=== PATIENT | female | born 2000 | race Caucasian/White ===

== ENCOUNTER → 2022-08-19 | Outpatient (CLI) | payer OTHER ==
--- NOTE | 2022-08-19 13:31 | US ---
EXAMINATION TYPE: Ultrasound OB <= 14 weeks transvaginal DATE OF EXAM: 08/19/2022 1:09 PM COMPARISON: NONE CLINICAL HISTORY: 22-year-old female Z36.89 ENCOUNTER FOR OTHER SPECIFIED SCR. Dates. No p ain or bleeding. EXAM PERFORMED: Transvaginal (TV) and Transabdominal (TA) FINDINGS: EXAM MEASUREMENTS: GESTATIONAL AGE / DATING Physician Established: Not yet established Dates by LMP: (12 weeks/2 days) EDC: 03/01/2023 Dates by First Scan: No previous this is first scan Dates by Current Scan for: ( 7 weeks/5 days) EDC: 04/02/2023 MATERNAL ANATOMY Uterus: 9.2 x 6.4 x 6.4 cm Right Ovary: 2.6 x 1.3 x 1.3 cm Left Ovary: 2.5 x 1.2 x 1.3 cm Post CDS / Adnexa: no Presence of free fluid: no Presence of corpus luteal cyst: right ovary- 1.5 x 1.3 x 1.1 cm Presence of subchorionic bleed: no GESTATION / SURVEY CRL: 0.5 cm (6 weeks/2 days) MSD: 3.5 cm (9 weeks/0 days) Yolk Sac (normal less than 6mm): Not visualized Heart Rate: Negative heart tones IUP: Demise Date of LMP: 05/25/2022, G1 Beta HcG (if available): Not available at this time Chief Procurement Officer notes: GS and CRL visualized. No YS seen at time of scan. GS appears low in JORDAN. No fe billie heart tones visualized, color doppler performed. IMPRESSION: Findings concerning for demise. The gestational sac (9 weeks 0 days) is relatively larger than the pole (6 weeks 2 days). Both are discordant an smaller with age by LMP. The pole measu res 5 mm and shows no cardiac activity. The gestational sac is also low-lying in the uterus. Recommen d serial beta hCG to confirm demise.
== END | disposition home or self-care (01) ==
LOC: RADUSWWP 12:16
PROVIDERS: ATTEND Obstetrics & Gynecology
DX: Z36.89 Encounter for other specified antenatal screening (principal); O20.0 Threatened abortion; Z3A.09 9 weeks gestation of pregnancy
CPT/HCPCS: 76801; 76817; 84702

== ENCOUNTER 2022-08-26 13:07 | Emergency (ER) | payer OTHER ==
[2022-08-26 13:14] VITALS: TEMP 98.5
[2022-08-26] MEDS ORDERED: SODIUM CHLORIDE 0.9% 1,000 ML IV ONE (13:19)
--- NOTE | 2022-08-26 13:32 | ED ---
General Adult HPI - General Chief complaint: Vaginal Bleeding Stated complaint: miscarriage Time Seen by Provider: 08/26/22 13:17 Source: patient, family, RN notes reviewed, old records reviewed Mode of arrival: ambulatory Limitations: no limitations - History of Present Illness Initial comments: This is a 22-year-old female that presents to the emergency room with her mom complaining of a miscarriage on Monday. Patient was diagnosed with demis e by ultrasound on August [address] Faust. She passed a large amount of tissue at home on Monday which mom retrieved and brought in to the ER today in a small box. Mom states they contacted the OB office and we offered to bring speciment in to send to lab and they opted not to. They took it to the home and the home recommended that she come to the emergency room for evaluation. Patient denies any pain or discomfort. No fevers. No further vaginal bleeding or cramping. Mom states that patient has an abnormal uterus and wanted her reevaluated. -: days(s) (7) Severity scale (1-10): 0 Associated Symptoms: denies other symptoms - Related Data Allergies Allergy/AdvReac Type Severity Reaction Status Date / Time No Known Allergies Allergy Verified 08/26/22 13:14 Review of Systems ROS Statement: Those systems with pertinent positive or pertinent negative responses have been documented in the HPI. ROS Other: All systems not noted in ROS Statement are negative. Past Medical History Past Medical History: No Reported History History of Any Multi-Drug Resistant Organisms: None Reported Past Surgical History: No Surgical Hx Reported Past Psychological History: No Psychological Hx Reported Smoking Status: Never smoker Past Alcohol Use History: None Reported Past Drug Use History: Marijuana General Exam Limitations: no limitations General appearance: alert, in no apparent distress Head exam: Present: atraumatic Eye exam: Present: normal appearance. Absent: scleral icterus, conjunctival injection, periorbital swelling Respiratory exam: Absent: respiratory distress, accessory muscle use Cardiovascular Exam: Present: regular rate GI/Abdominal exam: Present: soft. Absent: distended, tenderness, rigid Extremities exam: Present: normal capillary refill. Absent: pedal edema Neurological exam: Present: alert, oriented X3 Psychiatric exam: Present: normal affect, normal mood Skin exam: Present: warm, dry, normal color. Absent: cyanosis, diaphoretic, pallor Course Vital Signs 08/26/22 08/26/22 13:11 15:14 Temperature 98.5 F Pulse Rate 94 91 Respiratory 20 18 Rate Blood Pressure 146/90 141/76 O2 Sat by Pulse 99 98 Oximetry Medical Decision Making - Medical Decision Making Hemoglobin and hematocrit are stable. Beta quantitative is 89.8 down from 2854 on August 19. Pelvic ultrasound today shows a slightly thickened endometrium measuring up to 2.5 cm without gestational sac or fluid identified. No significant internal color flow. This represents sequelae of a recent with retained products of conception not excluded. She'll be referred to follow up with Dr. Faust next week. Return to the emergency room with any new or concerning symptoms including fevers or increased pain. A repeat beta hCG drawn in 48 hours. Blood type O+, no rhogam indicated. Vital signs are stable. Patient remains pain free at discharge. Case discussed with Dr. Mcgrath Was pt. sent in by a medical professional or institution? @ -no Did you speak to anyone other than the patient for history? @ -mom Did you review nursing and triage notes? @ -yes i agree Were old charts reviewed? @ -yes previous u/s and labs Differential Diagnosis? @ -Ectopic , incomplete , missed EKG interpreted by me (3pts min.)? @ -[none] X-rays interpreted by me (1pt min.)? @ -[none] CT interpreted by me (1pt min.)? @ -[none] U/S interpreted by me (1pt. min.)? @ -no What testing was considered but not performed? (CT, X-rays, U/S, labs)? Why? @ none What meds were considered but not given? Why? @ -RhoGAM was considered however patient's blood type is O+, not indicated Did you discuss the management of the patient with other professionals? @ -no Did you reconcile home meds? @ -no Was smoking cessation discussed for >3mins.? @ -[none] Was critical care preformed (if so, how long)? @ -no Were there social determinants of health that impacted care today? How? (Homelessness, low income, unemployed, alcoholism, drug addiction, transportation, low edu. Level, literacy, decrease access to med. care, senior living, rehab)? @ -no Was there de-escalation of care discussed even if they declined? (Discuss DNR or withdrawal of care, Hospice)? @ -no What co-morbidities impacted this encounter? (DM, HTN, Smoking, COPD, CAD, Cancer, CVA, Hep., AIDS, mental health diagnosis, sleep apnea, morbid obesity)? @ -none Was patient admitted / discharged? @ -discharged Undiagnosed new problem with uncertain prognosis? @ -[none] Drug Therapy requiring intensive monitoring for toxicity (Heparin, Nitro, Insulin, Cardizem)? @ -[none] Were any procedures done? @ -none Diagnosis/symptom? @ -Miscarriage Acute, or Chronic, or Acute on Chronic? @ -acute Uncomplicated (without systemic symptoms) or Complicated (systemic symptoms)? @ -Uncomplicated Side effects of treatment? @ -[none] Exacerbation, Progression, or Severe Exacerbation] @ -[no] Poses a threat to life or bodily function? @ -[no] - Lab Data Result diagrams: 08/26/22 13:41 08/26/22 13:41 Lab Results 08/26/22 08/26/22 08/26/22 Range/Units 13:41 13:41 14:54 WBC 6.4 (3.8-10.6) k/uL RBC 4.30 (3.80-5.40) m/uL Hgb 13.1 (11.4-16.0) gm/dL Hct 37.1 (34.0-46.0) % MCV 86.4 (80.0-100.0) fL MCH 30.4 (25.0-35.0) pg MCHC 35.2 (31.0-37.0) g/dL RDW 13.2 (11.5-15.5) % Plt Count 347 (150-450) k/uL MPV 7.3 Neutrophils % 72 % Lymphocytes % 20 % Monocytes % 4 % Eosinophils % 2 % Basophils % 0 % Neutrophils # 4.6 (1.3-7.7) k/uL Lymphocytes # 1.3 (1.0-4.8) k/uL Monocytes # 0.3 (0-1.0) k/uL Eosinophils # 0.1 (0-0.7) k/uL Basophils # 0.0 (0-0.2) k/uL Sodium 141 (137-145) mmol/L Potassium 4.4 (3.5-5.1) mmol/L Chloride 107 (98-107) mmol/L Carbon Dioxide 27 (22-30) mmol/L Anion Gap 7 mmol/L BUN 5 L (7-17) mg/dL Creatinine 0.72 (0.52-1.04) mg/dL Est GFR (CKD-EPI)AfAm >90 (>60 ml/min/1.73 sqM) Est GFR (CKD-EPI)NonAf >90 (>60 ml/min/1.73 sqM) Glucose 98 (74-99) mg/dL Calcium 8.9 (8.4-10.2) mg/dL HCG, Quant 89.8 mIU/mL Blood Type O Positive Blood Type Recheck No Previous Record Bld Type Recheck Status [facility] ONLY Disposition Clinical Impression: Miscarriage Disposition: HOME SELF-CARE Condition: Good Instructions (If sedation given, give patient instructions): Miscarriage (ED) Additional Instructions: Follow-up with your VEGETABLE FARMWORKER next week. Return to the emergency room with any new or concerning symptoms including increased pain, shortness of breath, dizziness or fevers. Is patient prescribed a controlled substance at d/c from ED?: No Referrals: None,Stated [Primary Care Provider] - 1-2 days Time of Disposition: 15:42
[2022-08-26 13:59] LABS: Basophils % (A) 0 %; Eosinophils # (A) 0.1 k/uL (0-0.7); Eosinophils % (A) 2 %; HCT 37.1 % (34.0-46.0); HGB 13.1 gm/dL (11.4-16.0); Lymphocytes # (A) 1.3 k/uL (1.0-4.8); Lymphocytes % (A) 20 %; MCH 30.4 pg (25.0-35.0); MCHC 35.2 g/dL (31.0-37.0); MCV 86.4 fL (80.0-100.0); Mean Platelet Volume 7.3; Monocytes # (A) 0.3 k/uL (0-1.0); Monocytes % (A) 4 %; Neutrophils # (A) 4.6 k/uL (1.3-7.7); Neutrophils % (A) 72 %; Platelet Count 347 k/uL (150-450); RDW 13.2 % (11.5-15.5); WBC 6.4 k/uL (3.8-10.6)
[2022-08-26 14:07] LABS: African American GFR (CKD) >90 (>60 ml/min/1.73 sqM); Anion Gap 7 mmol/L; Blood Urea Nitrogen 5 mg/dL (7-17); Calcium 8.9 mg/dL (8.4-10.2); Carbon Dioxide 27 mmol/L (22-30); Chloride 107 mmol/L (98-107); Glucose 98 mg/dL (74-99); Non-African American GFR(CKD) >90 (>60 ml/min/1.73 sqM); Potassium 4.4 mmol/L (3.5-5.1); Sodium 141 mmol/L (137-145)
[2022-08-26 14:21] LABS: HCG,Quantitative Serum 89.8 mIU/mL
--- NOTE | 2022-08-26 14:33 | US ---
EXAMINATION TYPE: US pelvic complete DATE OF EXAM: 08/26/2022 COMPARISON: OB ultrasound 08/19/2022 CLINICAL HISTORY: retained products. Spontaneous AB 4 days ago, bleeding has lessened, no pain, no fe selene TECHNIQUE: TA. Transabdominal sonographic images of the pelvis were acquired. Refused TV Date of LMP: unknown EXAM MEASUREMENTS: Uterus: 8.8 x 6.9 x 4.7 cm Endometrial Stripe: 2.5cm Right Ovary: 2.5 x 1.9 x 1.8 cm Left Ovary: 2.2 x 1.5 x 1.8 cm 1. Uterus: Anteverted wnl 2. Endometrium: slightly thickened versus normal 4 day post spontaneous AB. No gestational sac or fl uid identified. No significant internal color flow. 3. Right Ovary: wnl 4. Left Ovary: wnl 5. Bilateral Adnexa: wnl 6. Posterior cul-de-sac: wnl IMPRESSION: Slightly thickened endometrium measuring up to 2.5 cm without gestational sac or fluid identified. No significant internal color flow. This may represent sequelae of recent with retained produc ts of conception not excluded. Correlation with serial beta hCG and short-term follow-up exam is cindy mmended.
[2022-08-26 15:45] VITALS: BP 141/76; PULSE 91; RESP 18
== END 2022-08-26 15:47 | disposition home or self-care (01) ==
LOC: EC 13:07
DX: O03.9 Complete or unspecified spontaneous abortion without complication (principal); F12.90 Cannabis use, unspecified, uncomplicated
CPT/HCPCS: 36415; 76856; 80048; 84702; 85025; 86900; 86901; 96360; 99284

== ENCOUNTER 2023-08-21 15:15 | Outpatient (CLI) | payer OTHER ==
[2023-08-21 16:20] LABS: ALT 11 U/L (4-34); AST 20 U/L (14-36); African American GFR (CKD) >90 (>60 ml/min/1.73 sqM); Blood Urea Nitrogen 5 mg/dL (7-17); LDH 208 U/L (120-246); Non-African American GFR(CKD) >90 (>60 ml/min/1.73 sqM); Uric Acid 3.4 mg/dL (3.7-7.4)
[2023-08-21 16:27] LABS: Basophils % (A) 0 %; Eosinophils % (A) 0 %; HCT 34.6 % (34.0-46.0); HGB 12.1 gm/dL (11.4-16.0); Lymphocytes # (A) 1.4 k/uL (1.0-4.8); Lymphocytes % (A) 15 %; MCH 29.5 pg (25.0-35.0); MCV 84.1 fL (80.0-100.0); Mean Platelet Volume 7.8; Monocytes # (A) 0.4 k/uL (0-1.0); Monocytes % (A) 4 %; Neutrophils % (A) 78 %; Platelet Count 310 k/uL (150-450); Poikilocytosis Slight; RBC 4.12 m/uL (3.80-5.40); RDW 13.5 % (11.5-15.5); WBC 8.9 k/uL (3.8-10.6)
[2023-08-21 16:48] VITALS: BP 136/85; PULSE 112; RESP 16; TEMP 98.1
[2023-08-21 17:08] LABS: Creatinine,Urine Random 110.9 mg/dL; Protein/Creatinine Ratio,Urine 0.099
== END 2023-08-21 17:20 | disposition home or self-care (01) ==
LOC: FBPOP 15:15
PROVIDERS: ATTEND Obstetrics & Gynecology
DX: O13.3 Gestational [pregnancy-induced] hypertension without significant proteinuria, third trimester (principal); Z3A.34 34 weeks gestation of pregnancy; Z79.82 Long term (current) use of aspirin
CPT/HCPCS: 59025; 82565; 82570; 83615; 84156; 84450; 84460; 84520; 84550; 85025

== ENCOUNTER 2023-09-14 12:14 | Outpatient (CLI) | payer OTHER ==
[2023-09-14 13:09] LABS: Basophils % (A) 0 %; Eosinophils % (A) 0 %; HCT 35.9 % (34.0-46.0); HGB 11.7 gm/dL (11.4-16.0); Lymphocytes # (A) 1.1 k/uL (1.0-4.8); Lymphocytes % (A) 12 %; MCHC 32.6 g/dL (31.0-37.0); Mean Platelet Volume 7.7; Monocytes # (A) 0.3 k/uL (0-1.0); Monocytes % (A) 4 %; Neutrophils % (A) 82 %; Platelet Count 326 k/uL (150-450); RBC 4.17 m/uL (3.80-5.40); RDW 14.3 % (11.5-15.5); WBC 8.6 k/uL (3.8-10.6)
[2023-09-14 13:23] LABS: Creatinine,Urine Random 139.3 mg/dL; Protein/Creatinine Ratio,Urine 0.144
[2023-09-14 13:25] LABS: ALT 10 U/L (4-34); AST 25 U/L (14-36); African American GFR (CKD) >90 (>60 ml/min/1.73 sqM); Blood Urea Nitrogen 6 mg/dL (7-17); LDH 269 U/L (120-246); Non-African American GFR(CKD) >90 (>60 ml/min/1.73 sqM); Uric Acid 3.8 mg/dL (3.7-7.4)
[2023-09-14 14:05] VITALS: BP 149/81; PULSE 110; RESP 18; TEMP 98.8
[2023-09-14 16:55] LABS: Appearance,Urine Cloudy (Clear); Bacteria,Urine Few /hpf; Bilirubin,Urine Negative (Negative); Blood,Urine Negative (Negative); Color,Urine Yellow; Glucose,Urine (UA) Negative (Negative); Ketones,Urine Negative (Negative); Leukocyte Esterase,Urine Large (Negative); Mucus,Urine Few /hpf; Nitrite,Urine Negative (Negative); PH, Urine 7.5 (5.0-8.0); Protein,Urine 1+ (Negative); RBC,Urine 8 /hpf (0-5); Specific Gravity,Urine 1.015 (1.001-1.035); Squamous Epithelial Cell,Urine 42 /hpf (0-4); Urobilinogen,Urine <2.0 mg/dL (<2.0); WBC,Urine 24 /hpf (0-5)
== END 2023-09-14 13:51 | disposition home or self-care (01) ==
LOC: FBPOP 12:14
PROVIDERS: ATTEND Obstetrics & Gynecology
DX: O10.013 Pre-existing essential hypertension complicating pregnancy, third trimester (principal); Z3A.37 37 weeks gestation of pregnancy
CPT/HCPCS: 59025; 81001; 82565; 82570; 83615; 84156; 84450; 84460; 84520; 84550; 85025

== ENCOUNTER 2023-09-18 15:52 | Inpatient (IN) | payer OTHER ==
[2023-09-18] MEDS: LACTATED RINGERS 1,000 ML IV SCH (16:40)
[2023-09-18] MEDS ORDERED: TERBUTALINE 1 MG/ML VIAL SQ PRN (17:04)
[2023-09-18] MEDS ORDERED: OXYTOCIN 10 UNIT/ML 1 ML VIAL IM PRN (17:04)
[2023-09-18] MEDS ORDERED: METHYLERGONOVINE 0.2 MG/ML 1 ML AMP IM PRN (17:04)
[2023-09-18] MEDS ORDERED: CARBOPROST TROMETHAMINE 250 MCG/ML 1 ML AMP IM PRN (17:04)
[2023-09-18] MEDS ORDERED: miSOPROStoL 200 MCG TAB PO PRN (17:04)
[2023-09-18] MEDS ORDERED: TRANEXAMIC 1,000 MG/100ML-NACL 1,000 MG in EMPTY BAG 1 BAG IV PRN (17:04)
--- NOTE | 2023-09-18 17:04 | P.HPOB ---
History of Present Illness H&P Date: 09/18/23 Chief Complaint: Medical induction of labor Ms. Saenz is a 23 year old at 38 weeks and 2 days with EDC of 09/30/2023 by LMP consistent with 12 week US who presents for medical induction of labor for chronic hypertension (on Procardia 30mg BID) and severe IUGR with estimated weight in the 1st percentile at last growth ultrasound 3 weeks ago. surveillance with twice weekly non-stress tests and weekly biophysical profiles with umbilical artery dopplers have all been reassuring and within normal limits. Most recent PIH labs were within normal limits with a P:C ratio of 0.1 on 09/14/2023 after the patient had a severe-range blood pressure in the office. work-up: blood type O positive, antibody negative, rubella immune, VDRL non-reactive, HBsAg negative, HIV negative, gonorrhea negative, chlamydia negative, 1 hour GTT within normal limits, GBS negative. Past Medical History Past Medical History: No Reported History History of Any Multi-Drug Resistant Organisms: None Reported Past Surgical History: No Surgical Hx Reported Past Anesthesia/Blood Transfusion Reactions: No Reported Reaction Past Psychological History: No Psychological Hx Reported Smoking Status: Never smoker Past Alcohol Use History: None Reported Past Drug Use History: Marijuana Medications and Allergies Home Medications Medication Instructions Recorded Confirmed Type Aspirin 81 mg PO DAILY 08/21/23 09/18/23 History NIFEdipine XL [Procardia Xl] 30 mg PO BID 08/21/23 09/18/23 History Vit No.179/Iron/Folic 1 each PO DAILY 09/14/23 09/18/23 History [ Tablet] Allergies Allergy/AdvReac Type Severity Reaction Status Date / Time No Known Allergies Allergy Verified 08/21/23 15:38 Exam Vital Signs Temp Pulse Resp BP Pulse Ox 09/18/23 16:09 98.1 F 99 16 150/104 99 Intake and Output 09/18/23 09/18/23 09/18/23 06:59 14:59 22:59 Other: Weight 75.296 kg Focused physical exam is performed. This is a healthy-appearing in no apparent distress. Initial blood pressures are elevated at 140s-150s/80s-90s. Breathing is non-labored. Abdomen is gravid, non-tender. Cervix is closed, long, and high. Cooks catheter is inserted through the cervix with 60cc in each balloon. Extremities are non-tender and non-edematous. heart tones are reactive and reassuring on NST. Assessment and Plan Assessment: 23 year old at 38 weeks and 2 days presenting for medical induction of labor for cHTN on antihypertensives and severe IUGR in the 1%ile for estimated weight Plan: Admit, clear liquid diet this evening followed by NPO at midnight, low-dose oxytocin. Cooks catheter to be removed at 0500 followed by pitocin per protocol. Plan for AROM tomorrow morning. IV nubain prn overnight for pain. Continuous EFM and tocometer. Close monitoring of patient. Anticipate vaginal delivery. Time with Patient: Less than 30
[2023-09-18] MEDS: OXYTOCIN 30 UNITS/500 ML NS 30 UNIT in SALINE 1 500ML.BAG IV SCH (17:13)
[2023-09-18 17:37] LABS: Basophils % (A) 0 %; Eosinophils % (A) 0 %; HCT 34.8 % (34.0-46.0); HGB 11.7 gm/dL (11.4-16.0); Lymphocytes # (A) 1.6 k/uL (1.0-4.8); Lymphocytes % (A) 16 %; MCH 28.7 pg (25.0-35.0); MCHC 33.6 g/dL (31.0-37.0); MCV 85.3 fL (80.0-100.0); Mean Platelet Volume 8.2; Monocytes # (A) 0.4 k/uL (0-1.0); Monocytes % (A) 4 %; Neutrophils # (A) 7.9 k/uL (1.3-7.7); Neutrophils % (A) 78 %; Platelet Count 373 k/uL (150-450); RBC 4.08 m/uL (3.80-5.40); RDW 14.5 % (11.5-15.5); WBC 10.1 k/uL (3.8-10.6)
[2023-09-18 18:33] LABS: ALT 11 U/L (4-34); AST 22 U/L (14-36); African American GFR (CKD) >90 (>60 ml/min/1.73 sqM); Albumin 3.7 g/dL (3.5-5.0); Alkaline Phosphatase 109 U/L (38-126); Anion Gap 6 mmol/L; Blood Urea Nitrogen 6 mg/dL (7-17); Calcium 8.8 mg/dL (8.4-10.2); Carbon Dioxide 21 mmol/L (22-30); Chloride 110 mmol/L (98-107); Glucose 82 mg/dL (74-99); Non-African American GFR(CKD) >90 (>60 ml/min/1.73 sqM); Potassium 3.5 mmol/L (3.5-5.1); Sodium 137 mmol/L (137-145); Total Bilirubin 0.4 mg/dL (0.2-1.3); Total Protein 6.9 g/dL (6.3-8.2)
[2023-09-18 19:29] LABS: Amphetamine Screen,Urine Not Detected (NotDetected); Barbiturate Screen,Urine Not Detected (NotDetected); Benzodiazepines Screen,Urine Not Detected (NotDetected); Cocaine Screen,Urine Not Detected (NotDetected); Methadone Screen, Urine Not Detected (NotDetected); Opiate Screen,Urine Not Detected (NotDetected); Oxycodone Screen, Urine Not Detected (NotDetected); Phencyclidine Screen,Urine Not Detected (NotDetected); Tricyclic Antidepressant,Urine Not Detected (NotDetected); Urn Cannabinoid Scrn Not Detected (NotDetected)
[2023-09-18] MEDS: NIFEdipine XL 30 MG TAB.ER.24 PO SCH (19:43)
[2023-09-18 19:51] LABS: Creatinine,Urine Random 125.3 mg/dL; Protein/Creatinine Ratio,Urine 0.184
[2023-09-18] MEDS: NALBUPHINE 10 MG/ML (10 ML MDV) IV PRN (20:39)
[2023-09-19] MEDS ORDERED: SODIUM CHLORIDE 0.9% 250 ML BAG ONE (05:58)
[2023-09-19] MEDS ORDERED: ROPIVACAINE 5 MG/ML 30 ML VIAL ONE (05:58)
[2023-09-19] MEDS ORDERED: fentaNYL (PF) 50 MCG/ML 5 ML AMP ONE (05:58)
[2023-09-19] MEDS: LIDOCAINE 0.5% (PF) 5 MG/ML (50 ML SDV) SQ PRN (08:41)
[2023-09-19] MEDS ORDERED: HYDROCORTISONE 2.5% RECTAL CREAM 30 GM TUBE RECTAL PRN (09:21)
[2023-09-19] MEDS ORDERED: LANOLIN CREAM 5 GM TUBE TOPICAL PRN (09:21)
[2023-09-19] MEDS ORDERED: ZOLPIDEM 5 MG TAB PO PRN (09:21)
[2023-09-19] MEDS ORDERED: diphenhydrAMINE 25 MG CAP PO PRN (09:21)
[2023-09-19] MEDS ORDERED: SIMETHICONE 80 MG CHEWABLE PO PRN (09:21)
[2023-09-19] MEDS ORDERED: diphenhydrAMINE 50 MG/ML 1 ML VIAL IVP PRN ×2 (09:21)
[2023-09-19] MEDS ORDERED: diphenhydrAMINE 50 MG CAP PO PRN (09:21)
[2023-09-19] MEDS: BENZOCAINE/MENTHOL SPRAY 1 GM/SPRAY AEROSOL TOPICAL PRN (09:26)
--- NOTE | 2023-09-19 09:27 | P.PROBDLV ---
Vaginal Delivery Note - . Vaginal Delivery Note: DATE OF SERVICE: 09/19/2023 PROCEDURE: Normal Vaginal Delivery ATTENDING: Dr. Laurel Jones MD ESTIMATED BLOOD LOSS: 200 mL FINDINGS: VFI, Apgars 9/9. Weight 4 poudns and 9 ounces (2065 grams) PROCEDURE: Ms. Saenz is a 23 year old at 38 weeks and 3 days presenting to labor and delivery for medical induction of labor. The has been complicated by chronic hypertension on antihypertensives and severe IUGR. For further details, please review the admitting H&P. A cooks catheter was placed overnight for cervical ripening with low-dose oxytocin. After removal, pitocin was titrated per protocol. The patient received epidural anesthesia per her request. SROM occurred at 810 revealing clear amniotic fluid. The patient was completely dilated at 812. She pushed effectively with Category I heart tones throughout the first and second stage of labor. A viable female infant was delivered at 831. The was placed on the maternal abdomen and bulb suctioned. The was noted to be spontaneously crying. Cord was clamped and cut after a 3 minute delay per the patient's request. The was handed off to the pediatric team. Placenta was delivered whole with gentle cord traction at 837. Oxytocin was started to facilitate uterine tone. Uterine fundus was found to be firm and below the umbilicus upon fundal massage. Thorough examination of the cervix, vagina, periurethral area, and perineum revealed a small second degree laceration that was repaired in the usual fashion with 2-0 Vicryl. The patient is stable and allowed to begin the bonding process.
[2023-09-19] MEDS: ROPIVACAINE 225 MG, fentaNYL (PF). 450 MCG in SODIUM CHLORIDE 0.9% 171 ML EPIDURAL ONE (12:26)
[2023-09-19] MEDS: IBUPROFEN 600 MG TAB PO PRN (13:14)
[2023-09-19] MEDS: SENNOSIDES-DOCUSATE SODIUM 1 EACH TAB PO SCH (20:31)
[2023-09-19] MEDS: ACETAMINOPHEN TAB 325 MG TAB PO PRN (22:40)
[2023-09-20 06:28] LABS: Basophils % (A) 0 %; Eosinophils # (A) 0.1 k/uL (0-0.7); Eosinophils % (A) 1 %; HCT 33.2 % (34.0-46.0); Lymphocytes % (A) 14 %; MCH 28.7 pg (25.0-35.0); MCHC 33.3 g/dL (31.0-37.0); MCV 86.4 fL (80.0-100.0); Mean Platelet Volume 7.4; Monocytes # (A) 0.5 k/uL (0-1.0); Monocytes % (A) 4 %; Neutrophils # (A) 11.1 k/uL (1.3-7.7); Neutrophils % (A) 80 %; Platelet Count 396 k/uL (150-450); RBC 3.84 m/uL (3.80-5.40); WBC 13.8 k/uL (3.8-10.6)
--- NOTE | 2023-09-20 08:42 | P.PNOBGVD ---
Subjective - Subjective Principal diagnosis: s/p normal vaginal delivery Interval history: The patient is doing well this morning and had no acute events overnight. She has no complaints this morning. She reports minimal lochia, passing flatus, voiding without difficulty, ambulating, and eating/drinking without nausea or vomiting. She is her without difficulty. She denies chest pain, shortness of breathing, fevers, or chills overnight. She denies pain or swelling in the legs. Patient reports: Reports appetite normal, Reports voiding normally, Reports pain well controlled, Reports ambulating normally [place]: doing well, nursing well Objective - Latest Vital Signs Latest vital signs: Vital Signs Temp Pulse Resp BP Pulse Ox 09/20/23 00:00 98.7 F 96 16 142/88 09/19/23 16:00 98.2 F 85 16 136/79 98 09/19/23 12:00 98.6 F 98 16 136/78 98 09/19/23 10:48 98.7 F 98 16 134/77 09/19/23 10:33 100 16 138/79 09/19/23 10:18 99 16 134/70 09/19/23 10:03 105 H 16 126/72 09/19/23 09:48 120 H 18 121/64 09/19/23 09:33 118 H 18 140/69 09/19/23 09:18 110 H 18 146/70 09/19/23 09:03 123 H 18 151/75 09/19/23 08:48 99.6 F 129 H 18 160/86 98 Intake and Output 09/19/23 09/20/23 09/20/23 22:59 06:59 14:59 Intake Total 300 Balance 300 Intake: Oral 300 Other: # Voids 2 1 # Bowel Movements 1 - Exam Extremities: Present: normal Abdomen: Present: normal appearance, soft Uterus: Present: normal, firm - Labs Labs: Abnormal Lab Results - Last 24 Hours (Table) 09/20/23 Range/Units 06:10 WBC 13.8 H (3.8-10.6) k/uL Hgb 11.0 L (11.4-16.0) gm/dL Hct 33.2 L (34.0-46.0) % Neutrophils # 11.1 H (1.3-7.7) k/uL Assessment and Plan Assessment: 23 year old now PPD#1 s/p normal vaginal delivery after induction of labor for cHTN and severe IUGR Plan: 1. . Patient meeting all milestones appropriately. 2. cHTN. BPs normotensive to mild range (all <150/90) on Procardia XL 30mg BID. Continue this dose. 3. Viable female at bedside, doing well. Dispo: Anticipate discharge home tomorrow.
--- NOTE | 2023-09-21 08:42 | P.DS ---
Providers Date of admission: 09/18/23 15:52 Expected date of discharge: 09/21/23 Attending physician: Laurel Jones MD Primary care physician: Rosendo Hiciro [place] Course: Ms. Saenz is a 23 year old now PPD#2 s/p normal vaginal delivery after medical induction of labor for chronic hypertension on antihypertensives and severe IUGR. The patient is doing well this morning and had no acute events overnight. She has no complaints this morning. She reports minimal lochia, passing flatus, voiding without difficulty, ambulating, and eating/drinking without nausea or vomiting. Infant doing well at bedside. She denies chest pain, shortness of breathing, fevers, or chills overnight. She denies pain or swelling in the legs. She denies headache, visual disturbances, or right upper quadrant pain. restrictions are reviewed with the patient including pelvic rest for 6 weeks. The patient is encouraged to call the office if she experiences any heavy bleeding, foul-smelling discharge, breast complaints, or any if she has any other concerns. She will follow up in the office in 1 week for blood pressure check. All questions are answered. Assessment: 23 year old now PPD#2 s/p normal vaginal delivery Patient Condition at Discharge: Good Plan - Discharge Summary New Discharge Prescriptions: New Ibuprofen [Motrin] 600 mg PO Q6HR PRN #30 tab PRN Reason: Mild Pain (Scale 1 To 3) Acetaminophen Tab [Tylenol] 650 mg PO Q6H PRN #30 tab PRN Reason: Mild Pain (Scale 1 To 3) No Action NIFEdipine XL [Procardia Xl] 30 mg PO BID Aspirin 81 mg PO DAILY Vit No.179/Iron/Folic [ Tablet] 1 each PO DAILY Discharge Medication List Aspirin 81 mg PO DAILY 08/21/23 [History] NIFEdipine XL [Procardia Xl] 30 mg PO BID 08/21/23 [History] Vit No.179/Iron/Folic [ Tablet] 1 each PO DAILY 09/14/23 [History] Acetaminophen Tab [Tylenol] 650 mg PO Q6H PRN #30 tab 09/21/23 [Rx] Ibuprofen [Motrin] 600 mg PO Q6HR PRN #30 tab 09/21/23 [Rx] Follow up Appointment(s)/Referral(s): Luarel Jones MD [STAFF PHYSICIAN] - 1 Week Activity/Diet/Wound Care/Special Instructions: Instructions 1. Do not begin any exercise program for 3 weeks. 2. Do not resume sexual relations for 6 weeks or longer if uncomfortable. 3. You may take tub baths or showers at any time. 4. You may use tampons if desired after 6 weeks. 5. Keep any areas repaired with stitches clean and dry. 6. If you are not nursing, wear a good fitting, supportive bra during the day and limit fluid intake for at least 1 week to prevent breast engorgement. 7. Call the office, , within the next week to make appointment for your 6 week checkup if it has not already been made. 8. Report any of the following occurrences to the doctor promptly: a. Heavy, excessive bleeding b. Chills, fever c. Burning or frequency of urination d. Pain or redness and breasts if nursing e. Increasing pain or swelling of vulva (stitches). Discharge Disposition: HOME SELF-CARE
[2023-09-21 08:51] VITALS: BP 135/77; PULSE 107; RESP 18; TEMP 98.6
== END 2023-09-21 10:35 | disposition home or self-care (01) | DRG 560 ==
LOC: 4FBP 15:52
PROVIDERS: ADMIT Obstetrics & Gynecology; ATTEND Obstetrics & Gynecology
PROC: 0KQM0ZZ Repair Perineum Muscle, Open Approach (ICD-10-PCS; principal; 2023-09-19)
PROC: 0U7C7ZZ Dilation of Cervix, Via Natural or Artificial Opening (ICD-10-PCS; principal; 2023-09-19)
PROC: 4A1HXCZ Monitoring of Products of Conception, Cardiac Rate, External Approach (ICD-10-PCS; principal; 2023-09-19)
PROC: 3E033VJ Introduction of Other Hormone into Peripheral Vein, Percutaneous Approach (ICD-10-PCS; principal; 2023-09-19)
PROC: 10E0XZZ Delivery of Products of Conception, External Approach (ICD-10-PCS; principal; 2023-09-19)
DX: O10.92 Unspecified pre-existing hypertension complicating childbirth (principal); O36.5930 Maternal care for other known or suspected poor fetal growth, third trimester, not applicable or unspecified; O70.1 Second degree perineal laceration during delivery; Z37.0 Single live birth; Z3A.38 38 weeks gestation of pregnancy; Z79.82 Long term (current) use of aspirin; Z79.899 Other long term (current) drug therapy; Z28.310 Unvaccinated for COVID-19; Z28.21 Immunization not carried out because of patient refusal
CPT/HCPCS: 80053; 80306; 82570; 84156; 85025; 86850; 86900; 86901; 88307